=== PATIENT | female | born 1975 | race Caucasian/White ===

== ENCOUNTER 2020-12-03 21:58 | Emergency (ER) | payer OTHER ==
[~2020-12-03] VITALS: Ht 157.5 cm; Wt 104.8 kg
[2020-12-03 22:18] VITALS: BP 140/84
[2020-12-03] MEDS ORDERED: LYRICA150 MG PO (22:40)
[2020-12-03] MEDS ORDERED: GLUCOPHAGE1000 MG PO (22:40)
[2020-12-03] MEDS ORDERED: LISINOPRIL10 MG PO (22:40)
[2020-12-03] MEDS ORDERED: AMITRIPTYLINE H25 M2 PO (22:41)
[2020-12-03] MEDS ORDERED: BIKTARVY 50-201 EACH PO (22:41)
[2020-12-03] MEDS ORDERED: WELLBUTRIN XL150 MG PO (22:41)
== END 2020-12-03 22:52 | disposition home or self-care (01) ==
LOC: M.ERS 21:58
DX: Z48.00 Encounter for change or removal of nonsurgical wound dressing (principal); I10 Essential (primary) hypertension; E11.9 Type 2 diabetes mellitus without complications; F32.9 Major depressive disorder, single episode, unspecified; F41.9 Anxiety disorder, unspecified; E66.9 Obesity, unspecified; Z68.41 Body mass index [BMI] 40.0-44.9, adult; Z79.899 Other long term (current) drug therapy; Z88.8 Allergy status to other drugs, medicaments and biological substances